=== PATIENT | male | born 1990 | race Caucasian/White ===

== ENCOUNTER 2018-03-06 00:03 | Emergency (ER) | payer OTHER ==
--- NOTE | 2018-03-06 00:32 | PDOC ---
History of Present Illness - General Chief Complaint: Injury Stated Complaint: LEG INJURY Time Seen by Provider: 03/06/18 00:32 *DC/Admit/Observation/Transfer - Referrals Referrals: Lisa Burgos [Primary Care Provider] - - Patient Instructions - Post Discharge Activity
[2018-03-06 00:40] VITALS: BP 127/74; PULSE 103; TEMP 97.8; BMI 22.2
--- NOTE | 2018-03-06 00:53 | PDOC ---
History of Present Illness - General Chief Complaint: Injury Stated Complaint: LEG INJURY Time Seen by Provider: 03/06/18 00:32 - History of Present Illness Initial Comments: 03/06/18 00:54 27m with no pmh presents to the emergency department after injuring his right ankle while misstepping on the sidewalk. His lateral ankle is swollen and he cannot bear weight on it. No nausea, vomiting. or evidence or open fracture. No loc, didn't hit his head. Past History - Past Medical History Allergies/Adverse Reactions: Allergies Allergy/AdvReac Type Severity Reaction Status Date / Time No Known Allergies Allergy Verified 03/06/18 00:40 Home Medications: Ambulatory Orders NK [No Known Home Medication] 03/06/18 COPD: No Other medical history: Patient denies - Immunization History Immunization Up to Date: Yes - Suicide/Smoking/Psychosocial Hx Smoking History: Never smoked Have you smoked in the past 12 months: No Information on smoking cessation initiated: No Hx Alcohol Use: Yes (Socially) Drug/Substance Use Hx: No Review of Systems - Review of Systems Able to Perform ROS?: Yes Is the patient limited Indonesian proficient: No Constitutional: No: Symptoms Reported HEENTM: No: Symptoms Reported Respiratory: No: Symptoms reported Cardiac (ROS): No: Symptoms Reported ABD/GI: No: Symptoms Reported Musculoskeletal: Yes: See HPI *Physical Exam - Vital Signs Last Vital Signs Temp Pulse Resp BP Pulse Ox 97.8 F 103 H 17 127/74 99 03/06/18 00:32 03/06/18 00:32 03/06/18 00:32 03/06/18 00:32 03/06/18 00:32 - Physical Exam General Appearance: Yes: Nourished, Appropriately Dressed. No: Apparent Distress Respiratory/Chest: positive: Lungs Clear, Normal Breath Sounds. negative: Chest Tender, Respiratory Distress Cardiovascular: positive: Regular Rhythm, Regular Rate, S1, S2 Extremity: positive: Other (swollen lateral malleolus of the right ankle. full sensation and range of motion of toes. good dorsal pedis pulse) Integumentary: positive: Normal Color, Dry, Warm Medical Decision Making - Medical Decision Making 03/06/18 00:58 Will do ankle xray and reassess. 03/06/18 01:39 No fracture seen. Placed Barker dressing and provided patient with crutches. Discharged with follow up *DC/Admit/Observation/Transfer Diagnosis at time of Disposition: Right ankle sprain - Discharge Dispostion Disposition: HOME Condition at time of disposition: Improved Admit: No - Referrals Referrals: Lisa Burgos [Primary Care Provider] - Haile Rodrigues MD [Staff Physician] - - Patient Instructions Printed Discharge Instructions: How to Prevent Falls, DI for Ankle Sprain Additional Instructions: Follow up with Dr. Rodrigues if you're not feeling better in 3 days. Come back to the Emergency department for any new, worsening or concerning symptom. - Post Discharge Activity
[2018-03-06] MEDS ORDERED: IBUPROFEN 600 MG TABLET (FP) PO ONE ×2 (01:41→01:52)
--- NOTE | 2018-03-06 01:48 | PDOC ---
Attending Attestation - Resident Resident Name: David Lewis - ED Attending Attestation I have performed the following: I have examined & evaluated the patient, The case was reviewed & discussed with the resident, I agree w/resident's findings & plan - HPI HPI: 03/06/18 01:47 Pt injured his ankle while walking on the pavement; felt a snap and now with lateral aspect swelling. - Physicial Exam PE: 03/06/18 01:47 Agree with resident exam. 03/06/18 03:26 Pt with likely ankle sprain. - Medical Decision Making 03/06/18 01:47 XRAY demonstrates no fracture; home with coffman dressing. Ortho follow up RICE
== END 2018-03-06 01:57 | disposition home or self-care (01) ==
LOC: JER 00:03
DX: S93.401A Sprain of unspecified ligament of right ankle, initial encounter (principal); W01.10XA Fall on same level from slipping, tripping and stumbling with subsequent striking against unspecified object, initial encounter; Y93.89 Activity, other specified; Y92.410 Unspecified street and highway as the place of occurrence of the external cause
CPT/HCPCS: 73590-TC-RT-FY; 73610-TC-RT-FY; 73630-TC-RT-FY; 99281-25